=== PATIENT | female | born 1995 | race Two or more races ===

== ENCOUNTER 2024-03-27 16:35 | Emergency (ER) | payer MEDICAID, OTHER ==
[~2024-03-27] VITALS: Ht 157.5 cm; Wt 45.0 kg
[2024-03-27 17:24] VITALS: BP 120/75; PULSE 90; RESP 17; TEMP 98; O2SAT 98
[2024-03-27] MEDS ORDERED: METH-1181 PO (17:27)
[2024-03-27] MEDS ORDERED: GABA-1250 PO (17:27)
== END 2024-03-27 17:54 | disposition home or self-care (01) ==
LOC: ER 16:43
DX: M25.571 Pain in right ankle and joints of right foot (principal); Z76.0 Encounter for issue of repeat prescription